=== PATIENT | female | born 1985 | race Caucasian/White ===

== ENCOUNTER 2016-11-12 08:45 | Emergency (ER) | payer OTHER ==
[2016-11-12 08:52] VITALS: BP 127/78
[2016-11-12] MEDS ORDERED: predniSONE TAB* 20 MG PO ONE (09:34)
[2016-11-12] MEDS ORDERED: Albuterol 2.5 MG/3 ML NEB.SOL* (0.083%) INH ONE (09:34)
[2016-11-12] MEDS ORDERED: Ipratropium 0.5MG/2.5ML NEB* 0.5 MG/2.5 ML NEB.SOLN INH ONE (09:34)
--- NOTE | 2016-11-12 11:30 | UC ---
Keke Vega Thomas, scribed for Dorota Swan DO on 11/12/16 at 0938 . Respiratory Complaint HPI - HPI Summary HPI Summary: The pt is a 31 y/o F presenting to [facility] c/o chest congestion, cough, and SOB that began three days ago. The pt rates the pain 2/10. Pt additionally c/o sore throat secondary to cough, sinus congestion (none at [facility] although she did have some previously). Pt denies ear ache, N/V, CP, dysuria, myalgia, ad arthralgia. She has a Hx of asthma and she is on Proair. She says that she prefers Ventolin. She reports prior episodes of similar symptoms for which she has taken prednisone and an abx. She has never had injections of steroids for her previous colds. - History of Current Complaint Chief Complaint: UCRespiratory Stated Complaint: CHEST CONGESTION Time Seen by Provider: 11/12/16 09:02 Hx Obtained From: Patient Hx Last Menstrual Period: 10/18/16 Onset/Duration: Lasting Days - onset three days ago, Still Present Severity Initially: Moderate Severity Currently: Moderate Pain Intensity: 2 Pain Scale Used: 0-10 Numeric Character: Cough: Nonproductive Aggravating Factors: Nothing Alleviating Factors: Nothing Associated Signs And Symptoms: Positive: URI, Sinus Discomfort - none at [facility] although some previously. Negative: Fever Related History: Similar Episode/Dx as: - previous colds - Allergies/Home Medications Allergies/Adverse Reactions: Allergies Allergy/AdvReac Type Severity Reaction Status Date / Time No Known Allergies Allergy Verified 11/12/16 08:49 PMH/Surg Hx/FS Hx/Imm Hx Previously Healthy: No Cardiovascular History: Other Other Cardiovascular History: NEGATIVE: htn Respiratory History: Asthma - Surgical History Surgical History: Yes Surgery Procedure, Year, and Place: colecystectomy 2010. - Family History Known Family History: Negative: Cardiac Disease, Hypertension, Diabetes - Social History Lives: With Family Alcohol Use: Rare Substance Use Type: None Smoking Status (MU): Former Smoker Type: Cigarettes Have You Smoked in the Last Year: No When Did the Patient Quit Smoking/Using Tobacco: 7 yrs ago - Immunization History Most Recent Influenza Vaccination: none Most Recent Tetanus Shot: unknown Most Recent Pneumonia Vaccination: none Review of Systems Constitutional: Other - NEGATIVE: fever Respiratory: Shortness Of Breath, Cough, Other - Chest congestion All Other Systems Reviewed And Are Negative: Yes Physical Exam Triage Information Reviewed: Yes Appearance: Well-Appearing, No Pain Distress, Well-Nourished Vital Signs: Initial Vital Signs Temp 97.2 F 11/12/16 08:49 Pulse 107 11/12/16 08:49 Resp 20 11/12/16 08:49 BP 127/78 11/12/16 08:49 Pulse Ox 99 11/12/16 08:49 Vital Signs Reviewed: Yes Eyes: Positive: Conjunctiva Clear. Negative: Discharge ENT: Positive: Hearing grossly normal, TMs normal. Negative: Tonsillar swelling , Tonsillar exudate, Trismus, Muffled/hoarse voice Neck exam: Normal Neck: Positive: Supple Respiratory: Positive: No respiratory distress, No accessory muscle use, Wheezing - diffuse all moody, Expiration - prolonged. Negative: Other: - Diffuse wheezing in all fiels and prolonged expiratory wheezing. Cardiovascular: Positive: No Murmur, Tachycardia Abdomen Description: Positive: Nontender, Soft. Negative: Distended, Guarding Bowel Sounds: Positive: Present Musculoskeletal Exam: Normal Neurological: Positive: Alert, Muscle Tone Normal Psychological Exam: Normal Psychological: Positive: Age Appropriate Behavior Skin Exam: Normal Skin: Positive: Other - Warm, Dry, Normal color UC Diagnostic Evaluation - Laboratory O2 Sat by Pulse Oximetry: 99 Re-Evaluation - Re-Evaluation First Eval Re-Evaluation Time: 10:38 Change: Improved Comment: air movement improved. decreased wheezing. I can still hear wheezing in all the moody. Respiratory Course/Dx - Course Course Of Treatment: pt noted to have elevated bp, likely d/t pt's condition - Differential Dx/Diagnosis Differential Diagnosis/HQI/PQRI: Asthma, Bronchitis, Lower Resp Infection, Sinusitis Provider Diagnoses: Asthma, bronchitis, elevated blood pressure without a diagnosis of hypertension Discharge - Discharge Plan Condition: Stable Disposition: HOME Prescriptions: Albuterol HFA INHALER* [Ventolin HFA Inhaler*] 2 puff INH Q4H PRN #1 mdi PRN Reason: Sob/Wheezing Azithromycin TAB* [Zithromax TAB (Z-FABIAN) 250 mg #6 tabs] 0 mg PO .SEE INSTRUCTIONS #6 tab guaiFENesin/CODIEN 100MG-10MG* [Robitussin AC 100Mg-10Mg*] 5 - 10 ml PO BEDTIME PRN #100 udc MDD 10ml PRN Reason: Cough predniSONE TAB* [Deltasone TAB*] 40 mg PO DAILY #8 tab Patient Education Materials: Asthma (ED), Acute Bronchitis (ED) Referrals: Omar Godoy MD [Primary Care Provider] - If Needed Additional Instructions: INHALED BRONCHODILATORS: You have received a prescription for an inhaled bronchodilator -- a medication which stimulates the airways in the lung to dilate. This improves the flow of air in asthma, bronchitis, and emphysema. These medicines have some similarity to adrenaline, and can cause similar side effects: shakiness, racing heart, and a sense of nervousness. These side effects decrease with time. Contact your doctor if these side effects are severe. Do not over-use the medicine. Too-frequent use of the inhaler may make it ineffective. Call your doctor if the inhaler is not controlling your symptoms at the prescribed doses. COUGH-SUPPRESSANT & EXPECTORANT MEDICATION: You are to use a cough medication as needed for relief of symptoms. This medicine is a combination of an expectorant (to make the mucous thinner and more easily "coughed up") and a cough suppressant (to reduce the frequency of coughing). The cough-suppressant medicine is related to narcotics. You may experience mild nausea and sleepiness. Some patients who are very sensitive to narcotics may have stomach pain from this medicine. Taking the medicine with food reduces these side effects. Do not drive or work with machinery until you know how this medicine affects you. The expectorant should have no side effects. Iodine-containing expectorants (such as organidin) should not be taken by persons with active thyroid disease unless approved by your doctor. Call the doctor if you develop shortness of breath, hives, rash, itching, lightheadedness, or severe nausea and vomiting. CORTICOSTEROID MEDICATION: You have been given a medicine of the cortisone class. This medication is used to control inflammation or allergy. It is usually only given for a short period of time, until the acute process subsides. There are usually no side effects from short-term use of cortisone-like medications. Some persons feel an increased sense of well-being and are not sleepy at bedtime. Long-term use of cortisone medications is best avoided, unless required for a severe condition. If your condition does not remit, or relapses after the course of corticosteroid medication, you should consult your physician. Contact the physician if you develop lightheadedness, black or tarry stools , swelling of the legs, or significant rapid change in weight. ANTIBIOTICS ARE NOT CURRENTLY INDICATED FOR YOUR CONDITION. hOWEVER, IF YOUR SYMPTOMS WORSEN OR PERSIST FOR OVER THE NEXT 3-5 DAYS, YOU CAN TAKE THE FOLLOWING MEDICATION: AZITHROMYCIN: Azithromycin (Zithromax) is a broad spectrum antibiotic in the same class as erythromycin. It can treat a variety of bacterial infections, but is most frequently used for respiratory infections. Azithromycin is extremely long-lasting. It accumulates in body tissues and continues to kill bacteria for many days. In order to improve absorption, Azithromycin should be taken at least one hour before or two hours after a meal. It does not have the same strong tendency to upset the stomach as erythromycin and is usually very well tolerated. Patients who have had a rash or other true allergic reactions to erythromycin should not take this medication. Call if you develop gastrointestinal distress, severe diarrhea, rash, hives, itching, or shortness of breath. ANYTIME YOU TAKE AN ANTIBIOTIC, IT IS IMPORTANT TO REPLENISH THE BODY'S SUPPLY OF "GOOD BACTERIA." YOU CAN GET GOOD BACTERIA FROM HIGH QUALITY CULTURED FOODS SUCH LOCAL YOGURT, SOUR KRAUT, YESENIA CIRO, NATURALLY FERMENTED PICKLES AND PROBIOTIC DRINKS. YOU CAN ALSO GET GOOD BACTERIA FROM A PROBIOTIC SUPPLEMENT. Your blood pressure was elevated at this visit. That does not mean you have hypertension, it is probably due to your current condition. Please follow up with your primary care provider. The documentation as recorded by the Keke garcia Thomas accurately reflects the service I personally performed and the decisions made by , Dorota Swan DO.
== END 2016-11-12 10:47 | disposition home or self-care (01) ==
LOC: UCEAST 08:45
DX: J45.909 Unspecified asthma, uncomplicated (principal); Z87.891 Personal history of nicotine dependence
CPT/HCPCS: 99202; G0463; J7512; J7644

== ENCOUNTER → 2017-11-07 16:19 | Emergency (ER) | payer SELFPAY | END | disposition left against medical advice (07) | LOC: ED 16:19 | DX: R51 Headache (principal); Z53.21 Procedure and treatment not carried out due to patient leaving prior to being seen by health care provider ==

== ENCOUNTER 2017-11-07 17:06 | Emergency (ER) | payer SELFPAY ==
[2017-11-07 17:14] VITALS: BP 114/76
--- NOTE | 2017-11-07 17:19 | UC ---
Headache HPI - HPI Summary HPI Summary: 32 yo female presents with headache. She tells me that for the past 3 days she has had an intermittent headache. Her headache is migratory from the back left to the front right and has moved all around. Pain feels like a tension or mild throb. She has been taking tylenol and ibuprofen for her discomfort with no relief. She had a leftover prescription for tylenol #3, which she took this morning and felt mild relief - but then she vomiting once this morning because her stomach felt upset. Denies fever, chills, sinus symptoms, cough, SOB, chest pain, abdominal pain, diarrhea, dysuria, dizziness, vision changes, weakness, or head trauma. - History Of Current Complaint Chief Complaint: UCHeadache Stated Complaint: HEADACHE Time Seen by Provider: 11/07/17 17:18 Hx Obtained From: Patient Hx Last Menstrual Period: one week ago Onset/Duration: Gradual Onset Initially Headache Was: Mild Currently Pain Is: Mild Pain Intensity: 3 Pain Scale Used: 0-10 Numeric Timing: Intermittent, Lasting: Character: Dull, Throbbing - Allergies/Home Medications Allergies/Adverse Reactions: Allergies Allergy/AdvReac Type Severity Reaction Status Date / Time No Known Allergies Allergy Verified 11/07/17 17:15 PMH/Surg Hx/FS Hx/Imm Hx Respiratory History: Asthma - Surgical History Surgical History: Yes Surgery Procedure, Year, and Place: colecystectomy 2009. - Family History Known Family History: Negative: Cardiac Disease, Hypertension, Diabetes - Social History Occupation: Employed Full-time Lives: With Family Alcohol Use: Rare Substance Use Type: None Smoking Status (MU): Former Smoker Type: Cigarettes Have You Smoked in the Last Year: No When Did the Patient Quit Smoking/Using Tobacco: 7 yrs ago - Immunization History Most Recent Influenza Vaccination: none Most Recent Tetanus Shot: unknown Most Recent Pneumonia Vaccination: none Review of Systems Constitutional: Negative Skin: Negative Eyes: Negative ENT: Negative Respiratory: Negative Cardiovascular: Negative Gastrointestinal: Negative Motor: Negative Neurovascular: Negative Musculoskeletal: Negative Neurological: Headache Psychological: Negative All Other Systems Reviewed And Are Negative: Yes Physical Exam - Summary Physical Exam Summary: GENERAL: NAD. WDWN. No pain distress. SKIN: No rashes, sores, masses, or open wounds. HEENT: Head: AT/NC Eyes: PERRLA. EOM intact. Conjunctiva clear without inflammation or discharge. Ears: Hearing grossly normal. B/L cerumen impaction Nose: Nasal mucosa pink and moist. NTTP maxillary and frontal sinus. Throat: Posterior oropharynx without exudates, erythema, or tonsillar enlargement. Uvula midline. NECK: Supple. Nontender. No lymphadenopathy. CHEST: CTAB. No r/r/w. No accessory muscle use. Breathing comfortably and in no distress. CV: RRR. Without m/r/g. Pulses intact. Brisk cap refill. ABDOMEN: Soft. NTTP. No distention or guarding., No organomegaly. No CVA tenderness. Bowel sounds present MSK: FROM in B/L UEs and LEs with symmetric strength. NEURO: A&Ox3. 3 word recall, remote, recent memory, ability to follow 2-step directions, and attention intact. CN: II: Peripheral moody intact. Vision normal. III, IV, : EOMI. No nystagmus. PERRLA. V: Sensations intact and symmetric. Opens mouth and clenches teeth. VII: No facial asymmetry. Forehead wrinkles. Grins, shuts eyes, frowns, puffs cheeks. VIII: Hearing intact to finger rub. IX, X: Swallows and coughs. Uvula midline. XI: Shrugs shoulders. Turns head against resistance. XII: No tongue deviation Ecuvnu-kf-xeip are intact. Gait with normal base. Romberg: maintains balance, no pronator drift. Normal speech. No facial drooping. PSYCH: Age appropriate behavior. GCS 15 Triage Information Reviewed: Yes Vital Signs: Initial Vital Signs Temp 98.7 F 11/07/17 17:12 Pulse 91 11/07/17 17:12 Resp 18 11/07/17 17:12 BP 114/76 11/07/17 17:12 Pulse Ox 98 11/07/17 17:12 Laboratory Tests 11/07/17 17:51 POC Urine Color Yellow POC Urine Clarity Clear POC Urine pH 6.0 POC Ur Specif [place] 1.025 POC Urine Protein Negative POC Ur Glucose (UA) Negative POC Urine Ketones Trace A POC Urine Blood 2+ A POC Urine Nitrite Negative POC Urine Bilirubin Negative POC Urine Urobilinogen 0.2 POC U Leukocyte Esteras Trace A Vital Signs Reviewed: Yes Headache Course/Dx - Course Course Of Treatment: In the clinical course pt was given Zofran and Toradol. Her ears were irrigated with good results - TMs normal. Pt experienced complete resolution of her symptoms. Her UA was positive for leuks, however she is not having any urinary symptoms. I discussed this with the pt and she prefers to be treated for a UTI now instead of waiting for urine culture results to return - will rx for Macrobid for her UTI and Zofran if her nausea returns. F/u prn - Differential Dx/Diagnosis Provider Diagnoses: Headache. UTI. Cerumen impaction. Nausea Discharge - Sign-Out/Discharge Documenting (check all that apply): Patient Departure All imaging exams completed and their final reports reviewed: No Studies - Discharge Plan Condition: Stable Disposition: HOME Prescriptions: Nitrofurantoin Monohyd/M-Cryst [Macrobid 100 mg Capsule] 100 mg PO BID #10 cap Ondansetron TAB* [Zofran 4 MG Tab*] 4 mg PO Q8H PRN #9 tab PRN Reason: Nausea Patient Education Materials: Urinary Tract Infection in Women (DC), Cerumen Impaction (ED), Tension Headache (ED) Referrals: Omar Godoy MD [Primary Care Provider] - Additional Instructions: If you develop a fever, shortness of breath, chest pain, new or worsening symptoms - please call your PCP or go to the ED. - Billing Disposition and Condition Condition: STABLE Disposition: Home - Attestation Statements Provider Attestation: I was available for consult. This patient was seen by the KIM. The patient was not presented to, seen by, or examined by me. -Jacob
[2017-11-07] MEDS ORDERED: Ketorolac INJ* 60 MG/2 ML VIAL IM ONE (17:27)
[2017-11-07] MEDS ORDERED: Ondansetron TAB* 4 MG PO ONE (17:27)
[2017-11-07] MEDS ORDERED: Ondansetron ODT TAB* 4 MG PO ONE (17:31)
--- NOTE | 2017-11-09 16:51 | UC ---
- Progress Note Progress Note: patient does not have evidence of UTI on culture--she can stop antibiodics if symptoms continue follow with pcp or return as needed Discharge - Sign-Out/Discharge Documenting (check all that apply): Patient Departure, Post-Discharge Follow Up All imaging exams completed and their final reports reviewed: No Studies - Discharge Plan Condition: Stable Disposition: HOME Prescriptions: Nitrofurantoin Monohyd/M-Cryst [Macrobid 100 mg Capsule] 100 mg PO BID #10 cap Ondansetron TAB* [Zofran 4 MG Tab*] 4 mg PO Q8H PRN #9 tab PRN Reason: Nausea Patient Education Materials: Urinary Tract Infection in Women (DC), Cerumen Impaction (ED), Tension Headache (ED) Referrals: Omar Godoy MD [Primary Care Provider] - Additional Instructions: If you develop a fever, shortness of breath, chest pain, new or worsening symptoms - please call your PCP or go to the ED. - Billing Disposition and Condition Condition: STABLE Disposition: Home
== END 2017-11-07 18:42 | disposition home or self-care (01) ==
LOC: UCEAST 17:06
DX: R51 Headache (principal); N39.0 Urinary tract infection, site not specified; H61.23 Impacted cerumen, bilateral; R11.0 Nausea; Z90.49 Acquired absence of other specified parts of digestive tract; Z87.891 Personal history of nicotine dependence
CPT/HCPCS: 81003; 87086; 96372; 99213; A9270-GY; G0463; J1885

== ENCOUNTER 2017-11-13 06:54 | Emergency (ER) | payer SELFPAY ==
[2017-11-13] MEDS ORDERED: Butalb/Acetamin/Caff TAB* 1 TAB PO ONE (07:41)
--- NOTE | 2017-11-13 07:43 | ED ---
Headache - HPI Summary HPI Summary: This patient is a 32 year old F presenting to ED with a chief complaint of CHIANG since about 1 week ago. The CC is described as intermittent. The patient rates the pain 3/10 in severity currently. Symptoms aggravated by nothing. Symptoms alleviated by nothing. Patient denies fever, sore throat, and ear pain. - History Of Current Complaint Chief Complaint: EDHeadache Stated Complaint: HEADACHE Time Seen by Provider: 11/13/17 07:26 Hx Obtained From: Patient Hx Last Menstrual Period: one week ago Onset/Duration: Sudden Onset, Started weeks ago - about 1 week ago, Still Present Currently Pain Is: Current Pain Scale(0-10)= - 3/10 Timing: Intermittent, Lasting: Aggravating Factor: Nothing Allevating Factors: Nothing Associated Signs And Symptoms: Other (Noted In Comments) - Patient denies fever , sore throat, and ear pain. - Allergies/Home Medications Allergies/Adverse Reactions: Allergies Allergy/AdvReac Type Severity Reaction Status Date / Time No Known Allergies Allergy Verified 11/13/17 07:00 PMH/Surg Hx/FS Hx/Imm Hx Endocrine/Hematology History: Denies: Hx Diabetes, Hx Thyroid Disease Cardiovascular History: Denies: Hx Hypertension Respiratory History: Reports: Hx Asthma Denies: Hx Chronic Obstructive Pulmonary Disease (COPD) GI History: Denies: Hx Ulcer Neurological History: Denies: Hx Migraine - Surgical History Surgery Procedure, Year, and Place: colecystectomy 2010. Hx Anesthesia Reactions: No Infectious Disease History: No Infectious Disease History: Denies: Hx Clostridium Difficile, Hx Hepatitis, Hx Human Immunodeficiency Virus (HIV), Hx of Known/Suspected MRSA, Hx Shingles, Hx Tuberculosis, Hx Known/ Suspected VRE, Hx Known/Suspected VRSA, History Other Infectious Disease, Traveled Outside the [place] in Last 30 Days - Family History Known Family History: Negative: Cardiac Disease, Hypertension, Diabetes - Social History Alcohol Use: Rare Substance Use Type: Reports: None Smoking Status (MU): Former Smoker Type: Cigarettes Have You Smoked in the Last Year: No Review of Systems Negative: Fever Negative: Sore Throat, Ear Ache Positive: Headache All Other Systems Reviewed And Are Negative: Yes Physical Exam - Summary Physical Exam Summary: Appearance: Well appearing, no pain distress Skin: warm, dry, reflects adequate perfusion Head/face: normal Eyes: EOMI, SYMONE ENT: normal Neck: supple, non-tender Respiratory: CTA, breath sounds present Cardiovascular: RRR, pulses symmetrical Abdomen: non-tender, soft Bowel: present Musculoskeletal: normal, strength/ROM intact Neuro: normal, sensory motor intact, A&Ox3 GCS: 15 Triage Information Reviewed: Yes Vital Signs On Initial Exam: Initial Vitals Temp Pulse Resp BP Pulse Ox 98 F 94 18 128/79 99 11/13/17 06:58 11/13/17 06:58 11/13/17 06:58 11/13/17 06:58 11/13/17 06:58 Vital Signs Reviewed: Yes Diagnostics - Vital Signs Vital Signs Temp Pulse Resp BP Pulse Ox 11/13/17 06:58 98 F 94 18 128/79 99 - Laboratory Lab Statement: Any lab studies that have been ordered have been reviewed, and results considered in the medical decision making process. - CT Brain CT CT Interpretation Completed By: Radiologist - Negative unenhanced head CT. ED physician has reviewed this radiology report. Re-Evaluation - Re-Evaluation First Eval Re-Evaluation Time: 08:49 Change: Improved Comment: The patient feels better. Discussed Brain CT results and plan for discharge with the patient. Patient understands and agrees with this plan. Headache Course/Dx - Course Assessment/Plan: This patient is a 32 year old F presenting to ED with a chief complaint of CHIANG since about [address] reveals negative unenhanced head CT. In the ED course, the patient was given Fioricet. The patient will be discharged with dx of headache. Patient understands and agrees with this plan. - Diagnoses Differential Diagnosis/HQI/PQRI: Migraine, Tension Headache, Other - headache Provider Diagnoses: Headache Discharge - Sign-Out/Discharge Documenting (check all that apply): Patient Departure - discharge - Discharge Plan Condition: Stable Disposition: HOME Prescriptions: Diclofenac Sodium EC TAB* [Voltaren EC TAB*] 50 mg PO TID PRN #15 tab.ec MDD 3 PRN Reason: Pain Patient Education Materials: Acute Headache (ED) Referrals: Omar Godoy MD [Primary Care Provider] - 3 Days Additional Instructions: PLEASE RETURN TO THE ED FOR ANY NEW OR WORSENING SYMPTOMS. - Billing Disposition and Condition Condition: STABLE Disposition: Home - Attestation Statements Document Initiated by Scribe: Yes Documenting Scribe: Umang Wilkins Provider For Whom Scribe is Documenting (Include Credential): Reji Mackey MD Scribe Attestation: I, Umang Wilkins, scribed for Reji Mackey MD on 11/13/17 at 1001. Scribe Documentation Reviewed: Yes Provider Attestation: The documentation as recorded by the scribeUmang accurately reflects the service I personally performed and the decisions made by me, Reji Mackey MD
--- NOTE | 2017-11-13 08:46 | RAD ---
Indication: Headache for the last several days. Comparison: No relevant prior exams available on the [facility] for comparison. Technique: Noncontrast CT vertex of skull through foramen magnum. Report: Vertex LEFT tilt of the head results in asymmetric appearance of the brain. Unremarkable cerebral sulci, ventricles, and basal cisterns. Negative for gómez matter white matter obscuration, intra or extra-axial hemorrhage, or mass effect. Unremarkable orbital contents. Unremarkable calvarium and skull base. Clear visualized paranasal sinuses and mastoid air spaces. Unremarkable scalp. IMPRESSION: #. Negative unenhanced head CT.
[2017-11-13 09:08] VITALS: BP 98/60
== END 2017-11-13 09:07 | disposition home or self-care (01) ==
LOC: ED 06:54
DX: R51 Headache (principal); Z87.891 Personal history of nicotine dependence
CPT/HCPCS: 70450; 99282; A9270-GY

== ENCOUNTER 2019-09-29 06:21 | Inpatient (IN) ==
[2019-09-29] MEDS ORDERED: Lactated Ringers 1000 ml BAG 1,000 ML IV SCH ×4 (08:00→16:00)
[2019-09-29] MEDS ORDERED: Lactated Ringers 1000 ml BAG 1,000 ML IV ONE ×2 (08:00→10:39)
[2019-09-29 08:42] LABS: Urine Benzodiazepine Screen None Detected (None Detect); Urine Cannabinoids Screen Presumptive Positive (None Detect); Urine Opiates Screen None Detected (None Detect)
[2019-09-29 09:12] LABS: ABS Basophils 0.1 10^3/ul (0-0.2); ABS Eosinophils 0.3 10^3/ul (0-0.6); ABS Lymphocytes 1.3 10^3/ul (1.0-4.8); ABS Monocytes 0.8 10^3/ul (0-0.8); ABS Neutrophils 7.2 10^3/ul (1.5-7.7); Hematocrit 31 % (35-47); Hemoglobin 10.7 g/dL (12.0-16.0); Lymphocyte % 13.6 %; Mean Corpuscular HGB Conc 35 g/dL (31-36); Mean Corpuscular Hemoglobin 30 pg (27-31); Mean Corpuscular Volume 86 fL (80-97); Mean Platelet Volume 9.9 fL (7.4-10.4); Platelet Count 195 10^3/uL (150-450); Red Blood Count 3.58 10^6 /uL (3.70-4.87); Red Cell Distribution Width 14 % (10-15); White Blood Count 9.7 10^3/uL (3.5-10.8)
[2019-09-29] MEDS ORDERED: OBEPIDURAL 250 ML EPIDURAL ONE (09:50)
[2019-09-29] MEDS ORDERED: Phenylephrine 40 mcg/mL 10mL (400mcg) SYRINGE IV PUSH PRN ×2 (10:39)
[2019-09-29] MEDS ORDERED: Lactated Ringers 1000 ml BAG 500 ML IV PRN ×2 (10:39)
[2019-09-29] MEDS ORDERED: Sodium Citrate/Citric Acid LIQ 15 ML UDC PO PRN (10:39)
[2019-09-29] MEDS ORDERED: OBEPIDURAL 250 ML EPIDURAL SCH (11:00)
[2019-09-29] MEDS ORDERED: Oxytocin in LR 20 UNITS/1,000 ML BAG IVPB SCH ×2 (12:00→16:00)
[2019-09-29] MEDS ORDERED: Lidocaine 2% w/ EPI 1:200,000 MPF 20 ML SDV VIAL ONE (13:59)
[2019-09-29] MEDS ORDERED: Dibucaine 1% OINT 28.35 GM TUBE PR PRN (15:48)
[2019-09-29] MEDS ORDERED: Witch Hazel PAD JAR TOPICAL PRN (15:48)
[2019-09-30 07:23] LABS: ABS Eosinophils 0.2 10^3/ul (0-0.6); ABS Lymphocytes 1.9 10^3/ul (1.0-4.8); ABS Neutrophils 8.8 10^3/ul (1.5-7.7); Hematocrit 28 % (35-47); Hemoglobin 9.5 g/dL (12.0-16.0); Mean Corpuscular HGB Conc 34 g/dL (31-36); Mean Corpuscular Hemoglobin 30 pg (27-31); Mean Corpuscular Volume 86 fL (80-97); Mean Platelet Volume 9.7 fL (7.4-10.4); Nucleated Red Blood Cells % 0.1; Platelet Count 193 10^3/uL (150-450); Red Blood Count 3.21 10^6 /uL (3.70-4.87); Red Cell Distribution Width 14 % (10-15)
[2019-09-30 12:07] VITALS: BP 92/55
== END 2019-09-30 15:38 | disposition home or self-care (01) | DRG 560 ==
LOC: MCHOBOUT 06:21 → MCHOB 08:04
PROVIDERS: ADMIT Midwife; ATTEND Midwife